=== PATIENT | male | born 1955 | race Caucasian/White ===

== ENCOUNTER → 2019-07-04 | Outpatient (CLI) | payer BC, MEDICARE ==
[2019-06-05 11:00] VITALS: BP 137/78
[~2019-07-04] MED LIST: ACET1TAB33 PO; AMIO200T4 PO; APIX5TAB PO; ASPI-612 PO; CEPH-264 PO; DILT180C29 PO; GLYB5TAB3 PO; INSU100I13 SQ; LACT1CAP19 PO; LISI10TA2 PO; METF500T PO; POTA20TA4 PO; REGADENOSON 0.4 MG/5 ML DISP.SYRIN. IV ONE
--- NOTE | 2019-07-04 12:45 | RAD ---
MR#: [id number] Date of Study: 07/04/2019 Ordering Physician: JOJO PATIÑO Referring Physician: RON DASH Tech: RT Adalgisa (R) (N) APPROVED REPORT Test Type: Pharmacological Stress Nurse/Tech: Ping Antony R.N. Test Indications: afib,cardiomyopathy Cardiac History: DM, new onset afib Medications: Zocor Medical History: See Electronic Medical Record Resting ECG: SR w/ some pvc's Resting Heart Rate: 75 bpm Resting Blood Pressure: 149/81mmHg Pretest Chest Pain: No chest pain Nurse/Tech Notes S1S2, lungs CTA Consent: The procedure was explained to the patient in lay terms. Informed consent was witnessed. Blayne eout was entered into AMEE. History and Stress Test performed by RICCARDO Cao Pharm. Details Pharmacologic stress testing was performed using 0.4mg per 5ml of regadenoson given intravenously ove r 7-10 seconds. Stress Symptoms SOA POST EXERCISE Reason for Termination: Infusion complete Max HR: 94 bpm Max Blood Pressure: 135/74mmHg Blood Pressure response to exercise: Normal blood pressure response during stress. Heart Rate response to exercise: wnl Chest Pain: No. Arrhythmia: No. ST Change: Yes. slight St depression in leads V4-V5, INTERPRETATION Stress EKG Conclusion: Baseline EKG showed sinus rhythm. Non-diagnostic changes at peak stress. Few PVC's without any arrhythmias. Imaging Protocol IMAGE PROTOCOL: Rest Tc-99m/stress Tc-99m 1 day Rest: Stress: Viability: Radiopharm.Tc99m [id number] Sestamibi Wwmm72mAz 33mCi Duration 15min. 15min. Img Date 07/04/2019 07/04/2019 Inj-Img Usxt82epr. 60min. Rest Admin Site:IV - Right AntecubitalAdministrator:RT Adalgisa (R)(N) Stress Admin Site: IV - Right AntecubitalAdministrator: RICCARDO Cao STRESS DATA End Diast. Vol.189.0mlLVEDV index BSA86.0ml End Syst. Vol.115.0mlLVESV index BSA53.0ml Myocardial Uohv517.0gEject. Awfpqmmb25.0% Stress Scores Regional WT2.00Summed WT21.00 Regional WM0.00Summed WM23.00 LV Perfusion Scintigraphic images showed small reversible defect involving the inferolateral wall consistent with ischemia. Wall Motion Moderate left ventricle systolic dysfunction with ejection fraction calculated at 39%. LV Perf. Quant 17 Seg. SSS7.00 17 Seg. SRS0.00 17 Seg. SDS7.00 Stress Defect Extent (% LAD)1.90Rest Defect Extent (% LAD)3.80Rev. Defect Extent (% LAD)1.90 Stress Defect Extent (% LCX) 25.00Rest Defect Extent (% LCX)0.00Rev. Defect Extent (% LCX)25.00 Stress Defect Extent (% RCA)14.40Rest Defect Extent (% RCA)0.00Rev. Defect Extent (% RCA)10.00 Stress Defect Extent (% TRI)11.10Rest Defect Extent (% TRI)1.30Rev. Defect Extent (% TRI)10.00 Conclusion 1. Regadenoson cardioisotope stress test showed small inferolateral wall ischemia. 2. Moderate left ventricle systolic dysfunction with ejection fraction calculated at 39%. 3. Intermediate risk for cardiac events. Signed by : Jojo Patñio, Electronically Approved : 07/04/2019 12:45:01
== END | disposition home or self-care (01) ==
LOC: NM 07:32
PROVIDERS: ATTEND Internal Medicine Cardiovascular Disease
DX: I49.3 Ventricular premature depolarization (principal); I25.89 Other forms of chronic ischemic heart disease; I48.91 Unspecified atrial fibrillation; I42.9 Cardiomyopathy, unspecified
CPT/HCPCS: 78452; 93017; A9500; J2785

== ENCOUNTER 2019-07-14 06:56 | Outpatient (CLI) | payer BC, MEDICARE ==
[~2019-07-14] VITALS: Ht 185.4 cm; Wt 97.5 kg
[2019-07-14] VITALS (16 sets, daily range): BP systolic 125–183; BP diastolic 76–97
[~2019-07-14 06:56] MED LIST changes: -REGADENOSON 0.4 MG/5 ML DISP.SYRIN. IV ONE
[2019-07-14 07:34] LABS: HEMATOCRIT 42.6 % (39.0-53.0); HEMOGLOBIN 14.6 g/dL (13.0-17.5); RED BLOOD COUNT 4.73 x10^6/uL (4.30-5.70); RED CELL DISTRIBUTION WIDTH 14.9 % (11.5-14.5); WHITE BLOOD COUNT 8.5 x10^3/uL (4.0-11.0)
[2019-07-14] MEDS ORDERED: LIDOCAINE 1% PF 2 ML VIAL. ONE (07:34)
[2019-07-14] MEDS ORDERED: IODIXANOL 320 MG/ML 100 ML VIAL. ONE (07:34)
[2019-07-14] MEDS ORDERED: HEPARIN for ARTERIAL LINE 1,500 ML ONE (07:35)
[2019-07-14 07:49] LABS: CALCIUM 9.4 mg/dL (8.5-10.1); POTASSIUM 4.2 mmol/L (3.5-5.1)
[2019-07-14] MEDS ORDERED: VERAPAMIL 5 MG/2 ML VIAL. ONE (08:28)
[2019-07-14] MEDS ORDERED: HEPARIN for IV BOLUS 10,000 UNIT/10 ML VIAL. ONE (08:28)
[2019-07-14] MEDS ORDERED: NITROGLYCERIN 200 MCG/2 ML SYRINGE FOR CATH/VASC LAB. ONE (08:28)
[2019-07-14] MEDS ORDERED: fentaNYL PF VIAL 100 MCG/2 ML VIAL ONE (08:28)
[2019-07-14] MEDS ORDERED: MIDAZOLAM HCL/PF 5 MG/5 ML VIAL. ONE (08:28)
[2019-07-14] MEDS ORDERED: fentaNYL PF VIAL 100 MCG/2 ML VIAL IV ONE (09:00)
[2019-07-14] MEDS ORDERED: IODIXANOL 320 MG/ML 100 ML VIAL. IART ONE (09:00)
[2019-07-14] MEDS ORDERED: HEPARIN for IV BOLUS 10,000 UNIT/10 ML VIAL. IART ONE (09:00)
[2019-07-14] MEDS ORDERED: VERAPAMIL 5 MG/2 ML VIAL. IART ONE (09:00)
[2019-07-14] MEDS ORDERED: MIDAZOLAM HCL/PF 5 MG/5 ML VIAL. IV ONE (09:00)
[2019-07-14] MEDS ORDERED: LIDOCAINE 1% PF 2 ML VIAL. INJ ONE (09:00)
[2019-07-14] MEDS ORDERED: NITROGLYCERIN 200 MCG/2 ML SYRINGE FOR CATH/VASC LAB. IART ONE (09:00)
[2019-07-14] MEDS ORDERED: CONTRAST GIVEN. MC PRN (09:15)
[2019-07-14] MEDS ORDERED: ONDANSETRON PF 4 MG/2 ML VIAL. ONE (09:24)
[2019-07-14] MEDS ORDERED: 0.9 % SODIUM CHLORIDE 10 ML DISP.SYRIN. IV PRN (09:30)
[2019-07-14] MEDS ORDERED: IV 1/2 NORMAL SALINE 1,000 ML IV SCH (09:30)
[2019-07-14] MEDS ORDERED: NITROGLYCERIN SUBLINGUAL 0.4 MG BOTTLE OF 25. SL PRN (09:30)
--- NOTE | 2019-07-14 09:30 | PDOC ---
MODERATE SEDATION ASSESSMENT RISKS/ALTERNATIVES Risks/Alternatives Risks and alternatives of this type of sedation and procedure discussed with: RISK/ALTERNATIVES: Patient H & P ON CHART H & P H & P on chart and reviewed for co-morbid conditions and appropriate labs. H&P ON CHART: Yes STATUS PREG STATUS ASSESSED: N/A MEDS/ALLERGIES REVIEWED Meds/Allergies Reviewed Medications and Allergies including time and route of recently administered narcotics and sedatives. MEDS/ALLERGIES REVIEWED: Yes ASA RATING ASA RATING: II AIRWAY ASSESSMENT Airway Assessment Airway patency, oral function limitations, presence of caps, crowns, dentures, partials, and ability to extend neck assessed. AIRWAY ASSESSMENT: Yes MALLAMPATI SCORE MALLAMPATI SCORE: II PRE-SEDATION ASSESSMENT PRE-SEDATION ASSESSMENT: Yes JOJO PATIÑO MD Jul 14, 2019 09:30
--- NOTE | 2019-07-14 10:02 | CARD ---
MR#: [id number] Date of Study: 07/14/2019 Ordering Physician: JOJO PATIÑO, Referring Physician: JOJO PATIÑO Tech: ZAIN CUMMINGS RTR APPROVED REPORT Technologist: ZAIN CUMMINGS RTR Nurse: Ping Antony R.N. Procedure(s) performed: Left heart catheterization, selective coronary angiography and left ventricul ography via right transradial approach MODERATE SEDATION TIME: 33 MINUTES FLUORO TIME: 3.6 MIN DOSE: 72.3 GYCM2 CONTRAST: 143 INDICATION The indication(s) include : Cardiomyopathy and positive stress test. [facility] Clinical Frailty Scale [facility] Clinical Frailty Scale: Mildly Frail Heart Failure Heart Failure: No PROCEDURE NARRATIVE After explaining the risks, benefits and alternative options, informed consent was obtained from blank ent. Patient was brought to the cardiac Fitter Type Bar And Segment and right wrist was prepped and draped in the usual fashion after confirming a positive modified Erynaldo's test. Arterial access was obtained in the righ t radial artery and a 6 Tanzanian sheath was inserted. 6 Tanzanian Vasquez catheter was used to perform joel ective angiography of the left and right coronary arteries. 6 Tanzanian pigtail catheter was used to pe rform left ventriculography. Patient tolerated the procedure well. Hemostasis was achieved using TR band. There were no immediate complications. The following findings were noted. FINDINGS 1. Hemodynamics: Left ventricular end-diastolic pressure of 22 mmHg. No pullback gradient across th e aortic valve. 2. Left ventriculography: Posterobasal and diaphragmatic wall hypokinesis with ejection fraction est imated at 45%. No significant mitral regurgitation seen. 3. Coronary angiography: a. The left main coronary artery arose from the left sinus of Valsalva, gave rise to the left anteri or descending and left circumflex arteries and showed 60% stenosis involving the distal segment. b. The left anterior descending artery showed long 70% stenosis involving the proximal to midsegment . There is 50% stenosis noted in the distal segment. The diagonal branch which is a small-caliber ves joel showed 80% stenosis in the midsegment. c. The left circumflex artery showed 60% stenosis in the proximal to midsegment. The first obtuse ma rginal branch showed 70% stenosis in the proximal segment in the second obtuse marginal branch showed 80% stenosis in the proximal segment. The third obtuse marginal branch showed 60% stenosis. d. The right coronary artery was a large and dominant vessel arising from the right sinus of Valsalv a that showed long 80% stenosis involving the midsegment. Conclusion 1. Severe three-vessel coronary artery disease 2. Posterobasal and diaphragmatic wall hypokinesis with ejection fraction estimated at 45%. Recommendations Cardio thoracic surgery team consultation for possible coronary artery bypass surgery. Signed by : Jojo Patiño, Electronically Approved : 07/14/2019 10:02:44
--- NOTE | 2019-07-14 13:27 | NUR ---
Dr. Lemosurus here and talked with pt and his about CABG. discussed why he needs it and possible scenarios ie: bleeding issues, recovery time. pt will discuss it with family tonight and get back with the office to schedule pre- surgery tests and the surgery.
[2019-07-14] MEDS ORDERED: METF500T16 PO (13:44)
[2019-07-14] MEDS ORDERED: PROP20TA PO (13:48)
--- NOTE | 2019-07-14 14:05 | NUR ---
rt wrist site is clean and dry. armboard remains on rt wrist/hand area. vss. pt tolerating po well. ambulated to BR w/o problem. d/c instructions given and questions answered. out to vehicle per w/c - his to drive him home.
--- NOTE | 2019-07-14 14:14 | PDOC2 ---
CONSULT Date of Consult Date of Consult DATE: 07/14/19 TIME: 14:07 Reason for Consult Reason for Consult: Severe three-vessel coronary artery disease and ischemic cardiomyopathy Referring Physician Referring Physician: Dr Bradshaw Identification/Chief Complaint Chief Complaint Abnormal MPI Source Source: Chart review, Patient History of Present Illness Reason for Visit: The patient is a 64-year-old male with a history of diabetes, hypertension who was admitted to [facility] in May 2019 with right lower extremity cellulitis. At that time he was found to be in atrial fibrillation which was successfully converted with Cardizem. An echo demonstrated some cardiomyopathy with ejection fraction of 45%. He went on to have an MPI which demonstrated reversible inferior wall ischemia. Today he had an elective coronary angiogram which demonstrated a 60% distal left mainstem disease, an 80% proximal LAD stenosis, 70-80% proximal stenosis and OM 1 and OM 2, an 80-90% mid RCA stenosis. He denies ever having angina, shortness of breath, palpitations, o rthopnea. His right leg cellulitis has resolved. I was consulted to consider the patient for surgical coronary revascularization. Past Medical History Cardiovascular: AFIB, HTN Endocrine: Diabetes Past Surgical History Past Surgical History: Tonsillectomy, Other Family History Family History: Hypertension Social History ALCOHOL: none Drugs: None Lives: with Family Current Medications Current Medications Current Medications Iodixanol (Visipaque 320) 100 ml STK-MED ONCE .ROUTE ; Start 07/14/19 at 07:34; Stop 07/14/19 at 07:35; Status DC Lidocaine HCl (Xylocaine-Mpf 1% 2ml Vial) 2 ml STK-MED ONCE .ROUTE ; Start 07/14/19 at 07:34; Stop 07/14/19 at 07:35; Status DC Heparin Sodium/ Sodium Chloride 1,500 ml @ As Directed STK-MED ONCE .ROUTE ; Start 07/14/19 at 07:35; Stop 07/14/19 at 07:35; Status DC Fentanyl Citrate (Fentanyl 2ml Vial) 100 mcg STK-MED ONCE .ROUTE ; Start 07/14/19 at 08:28; Stop 07/14/19 at 08:28; Status DC Midazolam HCl (Versed) 5 mg STK-MED ONCE .ROUTE ; Start 07/14/19 at 08:28; Stop 07/14/19 at 08:28; Status DC Heparin Sodium (Porcine) (Heparin Sodium) 10,000 unit STK-MED ONCE .ROUTE ; Start 07/14/19 at 08:28; Stop 07/14/19 at 08:28; Status DC Verapamil HCl (Verapamil) 5 mg STK-MED ONCE .ROUTE ; Start 07/14/19 at 08:28; Stop 07/14/19 at 08:28; Status DC Nitroglycerin (Nitroglycerin) 200 mcg STK-MED ONCE .ROUTE ; Start 07/14/19 at 08:28; Stop 07/14/19 at 08:28; Status DC Nitroglycerin (Nitroglycerin) 200 mcg 1X ONCE IART Last administered on 07/14/19 09:14; Start 07/14/19 at 09:00; Stop 07/14/19 at 09:06; Status DC Verapamil HCl (Verapamil) 2.5 mg 1X ONCE IART Last administered on 07/14/19 09:14; Start 07/14/19 at 09:00; Stop 07/14/19 at 09:06; Status DC Heparin Sodium (Porcine) (Heparin Sodium) 2,500 unit 1X ONCE IART Last admini stered on 07/14/19 09:14; Start 07/14/19 at 09:00; Stop 07/14/19 at 09:06; Status DC Heparin Sodium/ Sodium Chloride (HEPARIN for ARTERIAL LINE FLUSH) 1,000 unit 1X ONCE IART Last administered on 07/14/19 09:14; Start 07/14/19 at 09:00; Stop 07/14/19 at 09:06; Status DC Midazolam HCl (Versed) 5 mg 1X ONCE IV Last administered on 07/14/19 09:14; Start 07/14/19 at 09:00; Stop 07/14/19 at 09:06; Status DC Fentanyl Citrate (Fentanyl 2ml Vial) 100 mcg 1X ONCE IV Last administered on 07/14/19 09:14; Start 07/14/19 at 09:00; Stop 07/14/19 at 09:06; Status DC Iodixanol (Visipaque 320) 100 ml 1X ONCE IART Last administered on 07/14/19 09:14; Start 07/14/19 at 09:00; Stop 07/14/19 at 09:06; Status DC Lidocaine HCl (Xylocaine-Mpf 1% 2ml Vial) 2 ml 1X ONCE INJ Last administered on 07/14/19at 09:14; Start 07/14/19 at 09:00; Stop 07/14/19 at 09:06; Status DC Info (CONTRAST GIVEN -- Rx MONITORING) 1 each PRN DAILY PRN MC SEE COMMENTS; Start 07/14/19 at 09:15; Stop 07/16/19 at 09:14 Ondansetron HCl (Zofran) 4 mg STK-MED ONCE .ROUTE ; Start 07/14/19 at 09:24; Stop 07/14/19 at 09:25; Status DC Sodium Chloride (Normal Saline Flush) 3 ml QSHIFT PRN IV AFTER MEDS AND BLOOD DRAWS; Start 07/14/19 at 09:30; Stop 07/15/19 at 09:29 Sodium Chloride 1,000 ml @ 60 mls/hr [id number] IV ; Start 07/14/19 at 09:30; Stop 07/15/19 at 09:29 Nitroglycerin (Nitrostat) 0.4 mg PRN Q5MIN PRN SL CHEST PAIN; Start 07/14/19 at 09:30; Stop 07/15/19 at 09:29 Active Scripts Active Glyburide 5 Mg Tablet 5 Mg PO BIDWMEALS 30 Days Lantus Solostar (Insulin Glargine,Hum.rec.anlog) 100 Unit/1 Ml Insuln.pen 20 Units SQ QHS 30 Days Culturelle (Lactobacillus Rhamnosus Gg) 1 Each Cap.sprink 1 Cap PO BID 30 Days Aspirin Ec (Aspirin) 81 Mg Tablet.dr 81 Mg PO DAILYWBKFT 30 Days Diltiazem 24HR Cd (Diltiazem Hcl) 180 Mg Cap.er.24h 180 Mg PO DAILY 30 Days Amiodarone Hcl 200 Mg Tablet 200 Mg PO DAILY 30 Days Eliquis (Apixaban) 5 Mg Tablet 5 Mg PO BID 30 Days Reported Propranolol Hcl 20 Mg Tablet 20 Mg PO DAILY Metformin Hcl 500 Mg Tablet 500 Mg PO BIDWMEALS hold doses till Sunday evening dose on 07/16/19 Allergies Allergies: Coded Allergies: No Known Drug Allergies (Unverified , 06/01/19) ROS General: No: Chills, Night Sweats, Fatigue, Malaise, Appetite PSYCHOLOGICAL ROS: No: Anxiety, Behavioral Disorder, Concentration difficultie, Decreased libido, Depression, Disorientation, Hallucinations, Hostility, Irritablity, Memory difficulties, Mood Swings, Obsessive thoughts, Physical abuse, Sexual abuse, Sleep disturbances, Suicidal ideation Eyes: No Blurry vision, No Decreased vision, No Double vision, No Dry eyes, No Excessive tearing, No Eye Pain, No Itchy Eyes, No Loss of vision, No Photophobia, No Scotomata, No Uses contacts, No Uses glasses HEENT: No: Heacaches, Visual Changes, Hearing change, Nasal congestion, Nasal discharge, Oral lesions, Sinus pain, Sore Throat, Epistaxis, Sneezing, Snoring, Tinnitus, Vertigo, Vocal changes ALLERGY AND IMMUNOLOGY: No: Hives, Insect Bite Sensitivity, Itchy/Watery Eyes, Nasal Congestion, Post Nasal Drip, Seasonal Allergies Hematological and Lymphatic: No: Bleeding Problems, Blood Clots, Blood Transfusions, Brusing, Night Sweats, Pallor, Swollen Lymph Nodes ENDOCRINE: No: Breast Changes, Galactorrhea, Hair Pattern Changes, Hot Flashes, Malaise/lethargy, Mood Swings, Palpitations, Polydipsia/polyuria, Skin Changes, Temperature Intolerance, Unexpected Weight Changes Respiratory: No: Cough, Hemoptysis, Orthopnea, Pleuritic Pain, Shortness of breath, SOB with excertion, Sputum Changes, Stridor, Tachypnea, Wheezing Cardiovascular: No Chest Pain, No Palpitations, No Orthopnea, No Paroxysmal Noc. Dyspnea, No Edema, No Lt Headedness Gastrointestinal: No Nausea, No Vomiting, No Abdominal Pain, No Diarrhea, No Constipation, No Melena, No Hematochezia Genitourinary: No Dysuria, No Frequency, No Incontinence, No Hematuria, No Retention, No Discharge, No Urgency, No Pain, No Flank Pain Musculoskeletal: No Gait Disturbance, No Joint Pain, No Joint Stiffness, No Joint Swelling, No Muscle Pain, No Muscular Weakness, No Pain In:, No Swelling In: Neurological: No Behavorial Changes, No Bowel/Bladder ControlChng, No Confusion, No Dizziness, No Gait Disturbance, No Headaches, No Impaired Coord/balance, No Memory Loss, No Numbness/Tingling, No Seizures, No Speech Problems, No Tremors, No Visual Changes, No Weakness Skin: No Dry Skin, No Eczema, No Hair Changes, No Lumps, No Mole Changes, No Mottling, No Nail Changes, No Pruritus, No Rash, No Skin Lesion Changes, No Acne Physical Exam General: Alert, Oriented X3, No acute distress HEENT: Atraumatic, PERRLA, EOMI Lungs: Clear to auscultation Heart: Regular rate, Normal S1, Normal S2, No murmurs Abdomen: Soft, No tenderness Extremities: No edema Skin: No significant lesion Neuro: Normal gait, Normal speech, Strength at 5/5 X4 ext, Normal tone, Sensation intact, Cranial nerves 3-12 NL, Reflexes 2+ Psych/Mental Status: Mental status NL MUSCULOSKELETAL: No deformity Vitals VITALS Vital Signs Date Time Temp Pulse Resp B/P (MAP) Pulse Ox O2 Delivery O2 Flow Rate FiO2 07/14/19 13:30 68 12 99 Room Air 07/14/19 09:34 2.0 07/14/19 09:32 183/97 (125) 07/14/19 07:46 97.6 97.6 Labs Labs Laboratory Tests Test 07/14/19 07:30 07/14/19 09:28 White Blood Count 8.5 x10^3/uL (4.0-11.0) Red Blood Count 4.73 x10^6/uL (4.30-5.70) Hemoglobin 14.6 g/dL (13.0-17.5) Hematocrit 42.6 % (39.0-53.0) Mean Corpuscular Volume 90 fL (79-100) Mean Corpuscular Hemoglobin 31 pg (25-35) Mean Corpuscular Hemoglobin Concent 34 g/dL (31-37) Red Cell Distribution Width 14.9 % (11.5-14.5) Platelet Count 250 x10^3/uL (140-400) Prothrombin Time 12.0 SEC (11.7-14.0) Prothromb Time International Ratio 0.9 (0.8-1.1) Sodium Level 137 mmol/L (136-145) Potassium Level 4.2 mmol/L (3.5-5.1) Chloride Level 102 mmol/L (98-107) Carbon Dioxide Level 26 mmol/L (21-32) Anion Gap 9 (6-14) Blood Urea Nitrogen 15 mg/dL (8-26) Creatinine 1.0 mg/dL (0.7-1.3) Estimated GFR (Cockcroft-Gault) 75.0 Glucose Level 205 mg/dL (70-99) Calcium Level 9.4 mg/dL (8.5-10.1) Glucose (Fingerstick) 232 mg/dL (70-99) Laboratory Tests Test 07/14/19 07:30 07/14/19 09:28 White Blood Count 8.5 x10^3/uL (4.0-11.0) Red Blood Count 4.73 x10^6/uL (4.30-5.70) Hemoglobin 14.6 g/dL (13.0-17.5) Hematocrit 42.6 % (39.0-53.0) Mean Corpuscular Volume 90 fL (79-100) Mean Corpuscular Hemoglobin 31 pg (25-35) Mean Corpuscular Hemoglobin Concent 34 g/dL (31-37) Red Cell Distribution Width 14.9 % (11.5-14.5) Platelet Count 250 x10^3/uL (140-400) Prothrombin Time 12.0 SEC (11.7-14.0) Prothromb Time International Ratio 0.9 (0.8-1.1) Sodium Level 137 mmol/L (136-145) Potassium Level 4.2 mmol/L (3.5-5.1) Chloride Level 102 mmol/L (98-107) Carbon Dioxide Level 26 mmol/L (21-32) Anion Gap 9 (6-14) Blood Urea Nitrogen 15 mg/dL (8-26) Creatinine 1.0 mg/dL (0.7-1.3) Estimated GFR (Cockcroft-Gault) 75.0 Glucose Level 205 mg/dL (70-99) Calcium Level 9.4 mg/dL (8.5-10.1) Glucose (Fingerstick) 232 mg/dL (70-99) Images Images 1. Hemodynamics: Left ventricular end-diastolic pressure of 22 mmHg. No pullback gradient across the aortic valve. 2. Left ventriculography: Posterobasal and diaphragmatic wall hypokinesis with ejection fraction estimated at 45%. No significant mitral regurgitation seen. 3. Coronary angiography: a. The left main coronary artery arose from the left sinus of Valsalva, gave rise to the left anterior descending and left circumflex arteries and showed 60% stenosis involving the distal segment. b. The left anterior descending artery showed long 70% stenosis involving the proximal to midsegment. There is 50% stenosis noted in the distal segment. The diagonal branch which is a small-caliber vessel showed 80% stenosis in the midsegment. c. The left circumflex artery showed 60% stenosis in the proximal to midsegmen t. The first obtuse marginal branch showed 70% stenosis in the proximal segment in the second obtuse marginal branch showed 80% stenosis in the proximal segment. The third obtuse marginal branch showed 60% stenosis. d. The right coronary artery was a large and dominant vessel arising from the right sinus of Valsalva that showed long 80% stenosis involving the midsegment. Assessment/Plan Assessment/Plan 64-year-old male with diabetes and hypertension, who presented a month ago with right lower extremity cellulitis and was found to be in atrial fibrillation. He was successfully cardioverted back to sinus rhythm with Cardizem. An echo at that time demonstrated cardiomyopathy with ejection fraction of 45%. Subsequent MPI showed reversible inferior wall ischemia. Coronary angiography demonstrated severe three-vessel coronary artery disease with left mainstem involvement. The patient is an appropriate candidate for CABG. The risks which include but are not limited to mortality 1-2%, stroke 1-2%, renal failure requiring dialysis 1%, pneumonia 5%, wound infection 5%, ventilator dependence 5%, reexploration for hemorrhage 5%, atrial fibrillation 40-50%, were explained to the patient who accepts these risks and agrees to proceed. His was present during our consultation and both of her questions were answered to their satisfaction. The patient will like to discuss his options with his this evening and will get back to my office with a potential date for his CABG. Right to surgery he will require a carotid duplex, bilateral lower extremity vein mapping, noncontrast CT of the chest and routine blood work including crossmatch 2 units PRBCs. I've also asked him to stop his Eliquis 4 days before surgery. CEDRICK PASTOR MD Jul 14, 2019 14:14
== END 2019-07-14 14:08 | disposition home or self-care (01) ==
LOC: CCL 06:56
PROVIDERS: ATTEND Internal Medicine Cardiovascular Disease
DX: I25.10 Atherosclerotic heart disease of native coronary artery without angina pectoris (principal); I25.5 Ischemic cardiomyopathy; I10 Essential (primary) hypertension; E78.00 Pure hypercholesterolemia, unspecified; E11.9 Type 2 diabetes mellitus without complications; I48.91 Unspecified atrial fibrillation; Z79.84 Long term (current) use of oral hypoglycemic drugs; Z72.89 Other problems related to lifestyle; Z98.890 Other specified postprocedural states
CPT/HCPCS: 36415; 80048; 82962; 85027; 85610; 93458; 99152; 99153; C1769; C1892; J1644; J2250; J3010; J3490; Q9967

== ENCOUNTER → 2019-07-22 | Outpatient (CLI) | payer BC, MEDICARE ==
[2019-07-14 13:30] VITALS: BP 147/84
[~2019-07-22] MED LIST changes: +DILT180C64 PO; +METF500T16 PO; +PROP20TA PO
[2019-07-22 14:01] LABS: PROTHROMBIN TIME PATIENT 12.2 SEC (11.7-14.0)
--- NOTE | 2019-07-22 15:48 | RAD ---
EXAM: Chest, 2 views. HISTORY: Coronary artery bypass grafting preoperative evaluation. COMPARISON: None. FINDINGS: 2 views of the chest are obtained. There is no infiltrate, pleural effusion or pneumothorax. The heart is normal in size. IMPRESSION: No acute pulmonary finding. Electronically signed by: Guera Banuelos MD (07/22/2019 3:45 PM) [facility] [place]
[2019-07-22 19:02] LABS: ALBUMIN 3.9 g/dL (3.4-5.0); ALBUMIN/GLOBULIN RATIO 1.1 (1.0-1.7); CALCIUM 9.2 mg/dL (8.5-10.1); CREATININE 1.2 mg/dL (0.7-1.3); GFR 60.8; POTASSIUM 4.2 mmol/L (3.5-5.1); TOTAL BILIRUBIN 0.4 mg/dL (0.2-1.0); TOTAL PROTEIN 7.6 g/dL (6.4-8.2)
[2019-07-23 04:09] LABS: HEMOGLOBIN A1C 10.3 % (4.8-5.6)
[2019-07-23 11:54] LABS: HEMATOCRIT 41.8 % (39.0-53.0); HEMOGLOBIN 14.2 g/dL (13.0-17.5); LYMPH % 24 % (24-48); MEAN CORPUSCULAR HEMOGLOBIN 31 pg (25-35); MEAN CORPUSCULAR HGB CONC 34 g/dL (31-37); MEAN CORPUSCULAR VOLUME 91 fL (79-100); MONO % 9 % (0-9); NEUT % 61 % (31-73); PLATELET COUNT 256 x10^3/uL (140-400); RED BLOOD COUNT 4.62 x10^6/uL (4.30-5.70); RED CELL DISTRIBUTION WIDTH 14.5 % (11.5-14.5)
[2019-07-23 11:55] LABS: BASO # 0.1 x10^3/uL (0.0-0.2); BASO % 1 % (0-3); EOS # 0.3 x10^3/uL (0.0-0.7); EOS % 3 % (0-3); LYMPH # 2.2 x10^3/uL (1.0-4.8); MONO # 0.8 x10^3/uL (0.0-1.1); NEUT # 5.5 x10^3/uL (1.8-7.7)
== END | disposition home or self-care (01) ==
LOC: SURGPAT 13:15
PROVIDERS: ATTEND Thoracic Surgery (Cardiothoracic Vascular Surgery)
DX: I25.10 Atherosclerotic heart disease of native coronary artery without angina pectoris (principal); Z95.1 Presence of aortocoronary bypass graft; E11.9 Type 2 diabetes mellitus without complications; I48.91 Unspecified atrial fibrillation
CPT/HCPCS: 36415; 71046; 80053; 83036; 85025; 85610; 85730; 87641

== ENCOUNTER → 2019-07-31 | Outpatient (CLI) | payer BC, MEDICARE ==
[2019-07-14 13:30] VITALS: BP 147/84
--- NOTE | 2019-07-31 10:07 | RAD ---
EXAM: CT Chest without IV contrast CLINICAL HISTORY: Preop CABG COMPARISON: Chest x-ray 07/22/2019 TECHNIQUE: CT of the chest without intravenous contrast. Axial, coronal and sagittal reformatted images were generated. ---PQRS compliance statement - One or more of the following individualized dose reduction techniques were utilized for this study: 1. Automated exposure control 2. Adjustment of the mA and/or kV according to patient size 3. Use of iterative reconstruction technique--- FINDINGS: Lack of intravenous contrast limits evaluation of solid organs, vasculature, and lymph nodes. Chest: Heart is not enlarged. Coronary artery calcifications are seen. No pericardial effusion. No pleural effusion or pneumothorax. No mediastinal, hilar or axillary lymphadenopathy. A 4 mm lung nodule is seen in the left upper lobe along the fissure (series 3 image 24). Mild biapical pleural/parenchymal scarring/thickening is seen. Visualized Upper abdomen: Upper abdomen is unremarkable. Bones: Visualized osseous structures are grossly unremarkable. IMPRESSION: 1. A 4 mm left upper lobe lung nodule is seen. Per Fleischner Society guidelines for incidentally found solid nodules measuring less than 6 mm, no follow-up is necessary if patient is considered at low risk for lung cancer. If patient is considered to be at high risk, such as with history of smoking, then CT follow-up in about 12 months can be considered. 2. Coronary artery calcifications are seen. 3. No lobar consolidation. Electronically signed by: Sylvester Collier MD (07/31/2019 10:04 AM) [facility]
--- NOTE | 2019-07-31 13:07 | RAD ---
MR#: [id number] Date of Study: 07/31/2019 Ordering Physician: JOJO PATIÑO, Referring Physician: JOJO PATIÑO, Tech: Kellen Lamb RT R, CT RDMS , T APPROVED REPORT Patient Location: OUT-PATIENT Laterality:Bilateral Indications PRE OP Risk Factors Diabetes PAD Doppler Spectral Velocity Analysis Right Left pCCA 75/27 cm/spCCA 84/35 cm/s mCCA 83/31 cm/smCCA 95/32 cm/s dCCA 72/27 cm/sdCCA 114/44 cm/s ECA 143/ cm/sECA 100/ cm/s pICA 66/30 cm/spICA 73/27 cm/s Christi 102/39 cm/smICA 105/48 cm/s dICA 111/45 cm/sdICA 67/33 cm/s Vert. 45/ cm/sVert. 29/ cm/s ICA/CCA 1.34ICA/CCA 1.25 Real-Time B-Mode Imaging AreaFindingsRightLeft CCAPlaque CompositionHeterogeneous Plaque DescriptionSmooth Plaque AreaDiffuse BIFPlaque CompositionCalcifiedHeterogeneous with calcification Plaque DescriptionSmoothIrregular Plaque AreaDiffuseDiffuse Findings Grayscale images of the bilateral common carotid, external and internal carotid vessels reveals mild diffuse intimal hyperplasia with mild irregularity and calcific plaque noted at the level of the zaidi tid bulbs. Based on spectral waveforms and color Doppler and velocities there is overall 0 to less than 50% sten osis involving the bilateral internal carotid arteries. The right external carotid artery likely has a moderate greater than 50% stenosis. Critical Notification Critical Value: No <Conclusion> 1. No significant bilateral internal carotid arterial disease. Signed by : Mehdi Goncalves, Electronically Approved : 07/31/2019 10:57:21
--- NOTE | 2019-07-31 13:07 | RAD ---
MR#: [id number] Date of Study: 07/31/2019 Ordering Physician: JOJO PATIÑO, Referring Physician: JOJO PATIÑO, Tech: Kellen Lamb RT R, CT RDVT AB, T APPROVED REPORT Patient Location: OUT-PATIENT Indications PRE OP CABG Vein Measurements Great Saphenous Small Saphenous RightLeft RightLeft Saph-Fem. Junction 5.30mm6.60mmProximal 3.40mm3.50mm Mid Thigh 3.80mm3.70mmMid 3.10mm2.70mm Distal Thigh 4.50mm4.40mmDistal 3.40mm2.10mm Proximal Calf 4.50mm4.00mm Mid Calf 3.70mm3.00mm Distal Calf 2.90mm3.00mm Findings Bilateral greater and lesser saphenous veins with adequate dimensions as noted above. The veins appea r to be fully compressible without any evidence of thrombus. Critical Notification Critical Value: No <Conclusion> Adequate bilateral greater and lesser saphenous veins for venous bypass Signed by : Mehdi Goncalves, Electronically Approved : 07/31/2019 10:58:15
== END | disposition home or self-care (01) ==
LOC: US 08:37
PROVIDERS: ATTEND Internal Medicine Cardiovascular Disease
DX: R91.1 Solitary pulmonary nodule (principal); I25.10 Atherosclerotic heart disease of native coronary artery without angina pectoris; I65.23 Occlusion and stenosis of bilateral carotid arteries; Z95.1 Presence of aortocoronary bypass graft
CPT/HCPCS: 71250; 93880; 93970

== ENCOUNTER → 2019-08-15 | Outpatient (CLI) | payer BC, MEDICARE ==
[2019-08-09 11:00] VITALS: BP 111/59
[~2019-08-15] MED LIST changes: +OXYC5TAB2 PO
--- NOTE | 2019-08-15 16:56 | RAD ---
Chest, PA and Lateral: Technique: PA and lateral views of the chest were obtained. History: Status post CABG. Comparison: 08/09/2019. Findings: Mild cardiomegaly. Minimal bibasilar lung airspace opacities. Mild degenerative changes identified in the thoracic spine. IMPRESSION: Mild bibasilar lung airspace opacities likely atelectasis or infiltrates. Electronically signed by: Pablo Vinson MD (08/15/2019 4:53 PM) [place] [id number]
== END | disposition home or self-care (01) ==
LOC: RAD 12:02
PROVIDERS: ATTEND Thoracic Surgery (Cardiothoracic Vascular Surgery)
DX: I11.9 Hypertensive heart disease without heart failure (principal); J98.4 Other disorders of lung; M47.814 Spondylosis without myelopathy or radiculopathy, thoracic region; Z95.1 Presence of aortocoronary bypass graft
CPT/HCPCS: 71046

== ENCOUNTER → 2020-07-15 | Outpatient (CLI) | payer MEDICARE ==
[2019-08-09 11:00] VITALS: BP 111/59
[~2020-07-15] MED LIST changes: -ASPI-612 PO; +ASPI-886 PO
--- NOTE | 2020-07-16 09:20 | CARD ---
MR#: [id number] Date of Study: 07/15/2020 Ordering Physician: JOJO PATIÑO, Referring Physician: JOJO PATIÑO, Tech: Aye Clark APPROVED REPORT EXAM: Two-dimensional and M-mode echocardiogram with Doppler and color Doppler. Other Information HR: 83bpm INDICATION Cardiac Disease: CAD Surgery/Intervention CABG: Date: 2018 RISK FACTORS Hypertension Hyperlipidemia Diabetes 2D DIMENSIONS RVDd3.9 (2.9-3.5cm)Left Atrium(2D)3.8 (1.6-4.0cm) IVSd1.2 (0.7-1.1cm)Aortic Root(2D)3.4 (2.0-3.7cm) LVDd5.9 (3.9-5.9cm)LVOT Diameter2.0 (1.8-2.4cm) PWd1.2 (0.7-1.1cm)LVDs3.8 (2.5-4.0cm) FS (%) 35.5 %SV113.0 ml Aortic Valve AoV Peak Alex.204.7cm/sAoV VTI40.9cm AO Peak GR.16.8mmHgLVOT Peak Alex.97.6cm/s LVOT VTI 20.00cmAO Mean GR.9mmHg MARILEE (VMAX)1.95ae6YRV (VTI)1.51cm2 Mitral Valve MV E Nnwidosm33.3cm/sMV DECEL [id number] MV A Weqjmcst92.4cm/sMV E Mean Gr.2mmHg MV ISA46iiG/A Ratio0.8 MVA (PHT)3.70cm2 TDI E/Lateral E'8.0E/Medial E'11.1 Pulmonary Valve PV Peak Kugbapli61.0cm/sPV Peak Grad.4mmHg LEFT VENTRICLE The left ventricle is normal size. There is normal left ventricular wall thickness. The left ventricu lar systolic function is low normal. LV ejection fraction is 50%. Septal motion consistent with condu ction abnormality. The left ventricular diastolic function and filling is normal for age. RIGHT VENTRICLE The right ventricle is normal size. The right ventricular systolic function is normal. ATRIA The left atrium size is normal. The right atrium size is normal. The interatrial septum is intact wit h no evidence for an atrial septal defect or patent foramen ovale as noted on 2-D or Doppler imaging. AORTIC VALVE The aortic valve is thickened but opens well. Doppler and Color Flow revealed no significant aortic r egurgitation. There is no significant aortic valvular stenosis. Calculated aortic valve area is 1.78 cm2 with maximum pressure gradient of 19 mmHg and mean pressure gradient of 10 mmHg. MITRAL VALVE The mitral valve is normal in structure and function. There is no evidence of mitral valve prolapse. There is no mitral valve stenosis. Doppler and Color-flow revealed trace mitral regurgitation. TRICUSPID VALVE The tricuspid valve is normal in structure and function. Doppler and Color Flow revealed no tricuspid valve regurgitation noted. There is no tricuspid valve stenosis. PULMONIC VALVE The pulmonic valve is not well visualized. Doppler and Color Flow revealed trace pulmonic valvular re gurgitation. GREAT VESSELS The aortic root is normal in size. The IVC is normal in size and collapses >50% with inspiration. PERICARDIAL EFFUSION There is no evidence of significant pericardial effusion. Critical Notification Critical Value: No <Conclusion> The left ventricle is normal size. The left ventricular systolic function is low normal. LV ejection fraction is 50%. Septal motion consistent with conduction abnormality. Doppler and Color Flow revealed no significant aortic regurgitation. There is no significant aortic valvular stenosis. Doppler and Color-flow revealed trace mitral regurgitation. Doppler and Color Flow revealed no tricuspid valve regurgitation noted. Signed by : Denys Mosley MD Electronically Approved : 07/16/2020 09:20:09
== END | disposition home or self-care (01) ==
LOC: ECHO 10:53
PROVIDERS: ATTEND Internal Medicine Cardiovascular Disease
DX: I25.10 Atherosclerotic heart disease of native coronary artery without angina pectoris (principal)
CPT/HCPCS: 93306